=== PATIENT | male | born 1985 | race Two or more races ===

== ENCOUNTER → 2020-04-26 | Emergency (ER) | payer SELFPAY ==
[~2020-04-26] VITALS: Ht 185.4 cm; Wt 65.8 kg
[2020-04-26 14:52] VITALS: BP 106/55
== END | disposition left against medical advice (07) ==
LOC: ER 14:48
DX: R05 Cough (principal); R50.9 Fever, unspecified; Z53.21 Procedure and treatment not carried out due to patient leaving prior to being seen by health care provider